=== PATIENT | female | born 1960 ===

== ENCOUNTER 2017-05-29 13:40 | Emergency (ER) | payer SELFPAY ==
[2017-05-29 13:41] VITALS: BMI 31.6
[2017-05-29 13:46] VITALS: BP 154/73; PULSE 93; RESP 17; TEMP 99.9; O2SAT 96
--- NOTE | 2017-05-29 14:50 | ED PDOC ---
HPI: General Adult Time Seen by Provider: 05/29/17 13:54 Chief Complaint (Nursing): Flu-like Symptoms Chief Complaint (Provider): Flu-like Symptoms History Per: Patient History/Exam Limitations: no limitations Onset/Duration Of Symptoms: Other (x 1 week) Current Symptoms Are (Timing): Still Present Additional Complaint(s): Iman is a 56 year old female with a past medical history of diabetes, hypothyroidism and hypertension who presents to the Emergency Department complaining of flu-like symptoms such as coughing up phlegm for one week. Denies any allergies. PMD: No provider Past Medical History Reviewed: Historical Data, Nursing Documentation, Vital Signs Vital Signs: Last Vital Signs Temp 99.9 F H 05/29/17 13:43 Pulse 93 H 05/29/17 13:43 Resp 17 05/29/17 13:43 BP 154/73 H 05/29/17 13:43 Pulse Ox 96 05/29/17 15:00 - Medical History PMH: Anxiety (NO LONGER), Diabetes, HTN, Hypothyroidism - Immunization History Hx Tetanus Toxoid Vaccination: No Hx Influenza Vaccination: No Hx Pneumococcal Vaccination: No - Home Medications Home Medications: Ambulatory Orders Medication Instructions Recorded Ibuprofen [Motrin] 600 mg PO Q8 #30 tab 11/18/14 Levothyroxine Sodium [Unithroid] 50 mcg PO DAILY 11/18/14 Azithromycin [Zithromax] 250 mg PO DAILY #6 tab 05/29/17 - Allergies Allergies/Adverse Reactions: Allergies Allergy/AdvReac Type Severity Reaction Status Date / Time No Known Allergies Allergy Verified 11/18/14 22:10 Review of Systems Respiratory: Positive for: Cough Physical Exam - Reviewed Nursing Documentation Reviewed: Yes Vital Signs Reviewed: Yes - Physical Exam Appears: Positive for: Non-toxic Head Exam: Positive for: NORMAL INSPECTION Eye Exam: Positive for: Normal appearance Neck: Positive for: Supple Cardiovascular/Chest: Positive for: Regular Rate, Rhythm Respiratory: Positive for: Normal Breath Sounds Neurologic/Psych: Positive for: Gait - ECG O2 Sat by Pulse Oximetry: 96 Medical Decision Making Medical Decision Making: Time: 14:40 Plan: - Zithromax 250 mg PO Upon provider evaluation patient is medically stable, and requires no further treatment in the ED at this time. Patient will be discharged with Rx for Zithromax. Counseling was provided and all questions were answered regarding diagnosis and need for follow up with PCP. There is agreement to discharge plan. Return if symptoms persist or worsen. Disposition - Clinical Impression Clinical Impression: Respiratory infection - Patient ED Disposition Is Patient to be Admitted: No - Disposition Disposition Time: 14:40 Condition: STABLE Prescriptions: Azithromycin [Zithromax] 250 mg PO DAILY #6 tab Instructions: Acute Bronchitis (ED) Forms: [employer] (Irish) Print Language: TURKISH
== END 2017-05-29 15:10 | disposition home or self-care (01) ==
LOC: H.ER 13:40
DX: J06.9 Acute upper respiratory infection, unspecified (principal); E03.9 Hypothyroidism, unspecified; E11.9 Type 2 diabetes mellitus without complications; F41.9 Anxiety disorder, unspecified; I10 Essential (primary) hypertension

== ENCOUNTER 2018-06-30 22:33 | Emergency (ER) | payer SELFPAY ==
[2018-06-30 22:33] VITALS: BMI 31.6
[2018-06-30 22:54] VITALS: RESP 18; O2SAT 99
--- NOTE | 2018-07-01 00:30 | ED PDOC ---
Lower Extremity Pain/Injury Time Seen by Provider: 06/30/18 23:38 Chief Complaint (Nursing): Lower Extremity Problem/Injury Chief Complaint (Provider): Left Leg Pain History Per: Patient, [employer] ([place], #[id number]) History/Exam Limitations: no limitations Onset/Duration Of Symptoms: Days (x2 months) Current Symptoms Are (Timing): Still Present Additional Complaint(s): 57 year old female presents to the ED for evaluation of left calf pain for the past two months. Patient denies ever seeing a doctor for this issue, but notes she is here today because the pain has been preventing her from sleeping. Otherwise denies shortness of breath, chest pain, cough, injury/ blunt trauma, and family history of blood clots. PMD: Clinic Past Medical History Reviewed: Historical Data, Nursing Documentation, Vital Signs Vital Signs: Last Vital Signs Temp 97.8 F 06/30/18 22:53 Pulse 65 06/30/18 22:53 Resp 18 06/30/18 22:53 BP 155/77 H 06/30/18 22:53 Pulse Ox 99 06/30/18 22:53 - Medical History PMH: Anxiety (NO LONGER), Arthritis, Diabetes, HTN, Hypothyroidism - Surgical History Other surgeries: abdominal mass removal - Family History Family History: States: Unknown Family Hx - Social History Current smoker - smoking cessation education provided: No Alcohol: None Drugs: Denies - Immunization History Hx Tetanus Toxoid Vaccination: No Hx Influenza Vaccination: No Hx Pneumococcal Vaccination: No - Home Medications Home Medications: Ambulatory Orders Medication Instructions Recorded Ibuprofen [Motrin] 600 mg PO Q8 #30 tab 11/18/14 Levothyroxine Sodium [Unithroid] 50 mcg PO DAILY 11/18/14 Azithromycin [Zithromax] 250 mg PO DAILY #6 tab 05/29/17 - Allergies Allergies/Adverse Reactions: Allergies Allergy/AdvReac Type Severity Reaction Status Date / Time No Known Allergies Allergy Verified 06/30/18 22:53 Wells Criteria for PE - Wells Criteria for Pulmonary Embolism Clinical Signs and Symptoms of DVT: No P.E is #1 Diagnosis, or Equally Likely: No Heart Rate >100: No Immobilization at least 3 days;Surgery previous 4 weeks: No Previous, objectively diagnosed PE or DVT: No Hemoptysis: No Malignancy w/treatment within 6 months, or palliative: No Total Score: 0 Review of Systems ROS Statement: Except As Marked, All Systems Reviewed And Found Negative Cardiovascular: Negative for: Chest Pain Respiratory: Negative for: Cough, Shortness of Breath Musculoskeletal: Positive for: Leg Pain (left calf pain) Physical Exam - Reviewed Nursing Documentation Reviewed: Yes Vital Signs Reviewed: Yes - Physical Exam Appears: Positive for: No Acute Distress Head Exam: Positive for: ATRAUMATIC, NORMOCEPHALIC Skin: Positive for: Normal Color, Warm, Dry Eye Exam: Positive for: Normal appearance Neck: Positive for: Normal, Painless ROM, Supple Cardiovascular/Chest: Positive for: Regular Rate, Rhythm Respiratory: Positive for: Normal Breath Sounds. Negative for: Respiratory Distress Gastrointestinal/Abdominal: Positive for: Normal Exam, Soft. Negative for: Tenderness Extremity: Positive for: Normal ROM (of left lower extremity), Other (varicose veins noted to left leg; neurovascular intact). Negative for: Pedal Edema, Calf Tenderness (bilateral) Neurologic/Psych: Positive for: Alert, Oriented (x3) - ECG O2 Sat by Pulse Oximetry: 99 (RA) Pulse Ox Interpretation: Normal Medical Decision Making Medical Decision Making: Time: 28 Initial Impression: left leg pain, r/o DVT Initial Plan: --US duplex left LE 0110 US Findings: Real-time ultrasound images of the deep venous system with Doppler evaluation. Normal compression, spontaneity and augmentation. Normal color Doppler. No intraluminal thrombus is seen. IMPRESSION: No evidence of deep venous thrombosis. Scribe Attestation: Documented by Carolina Massey acting as a scribe for Nolan Lester MD. Provider Scribe Attestation: All medical record entries made by the Scribe were at my direction and personally dictated by me. I have reviewed the chart and agree that the record accurately reflects my personal performance of the history, physical exam, medical decision making, and the department course for this patient. I have also personally directed, reviewed, and agree with the discharge instructions and disposition. Disposition - Clinical Impression Clinical Impression: Leg pain Counseled Patient/Family Regarding: Studies Performed - Disposition Disposition: Routine/Home Disposition Time: 02:56 Condition: IMPROVED Additional Instructions: follow up in the clinic in 1-2 days return to the ED with any worsening or concerning symptoms Instructions: Muscle Strain (DC) Forms: [facility] (Greenlandic), [facility] (Cape Verdean) Print Language: FRISIAN
[2018-07-01 03:40] VITALS: BP 138/74; PULSE 71; TEMP 98.2
--- NOTE | 2018-07-01 14:11 | US ---
Date of service: 07/01/2018 PROCEDURE: Left lower extremity venous duplex Doppler. HISTORY: pain COMPARISON: None available. TECHNIQUE: Common femoral, superficial femoral, popliteal and posterior tibial veins were evaluated. Flow was assessed with color Doppler, compressibility, assessment of phasic flow and augmentation response. FINDINGS: COMMON FEMORAL VEIN: Unremarkable. SUPERFICIAL FEMORAL VEIN: Unremarkable. POPLITEAL VEIN: Unremarkable. POSTERIOR TIBIAL VEIN: Unremarkable. OTHER FINDINGS: None. IMPRESSION: No evidence of deep venous thrombosis in the left lower extremity.
== END 2018-07-01 03:05 | disposition home or self-care (01) ==
LOC: H.ER 22:33
DX: M79.606 Pain in leg, unspecified (principal); E03.9 Hypothyroidism, unspecified; F41.9 Anxiety disorder, unspecified; I10 Essential (primary) hypertension